=== PATIENT | male | born 1955 | race Caucasian/White ===

== ENCOUNTER 2018-08-30 07:48 | Day surgery (SDC) | payer OTHER ==
[~2018-08-30] VITALS: Ht 167.6 cm; Wt 79.0 kg
[~2018-08-30 07:48] MED LIST: ATOR10 PO; Azor 10-20 MG1 EACH PO; FISH OIL 1,0001 EAC1 PO
== END 2018-08-30 09:48 | disposition home or self-care (01) ==
LOC: ORSCSDS 07:48
PROVIDERS: Student in an Organized Health Care Education/Training Program
PROC: 0DBK8ZX Excision of Ascending Colon, Via Natural or Artificial Opening Endoscopic, Diagnostic (ICD-10-PCS; principal; 2018-08-30 09:00)
DX: Z12.11 Encounter for screening for malignant neoplasm of colon (principal); D12.2 Benign neoplasm of ascending colon; K62.89 Other specified diseases of anus and rectum; K64.4 Residual hemorrhoidal skin tags; K57.30 Diverticulosis of large intestine without perforation or abscess without bleeding; I10 Essential (primary) hypertension; Z86.010 Personal history of colon polyps; Z79.899 Other long term (current) drug therapy
CPT/HCPCS: 88305; J0330; J1980; J2405; J7120

== ENCOUNTER → 2022-10-13 | Outpatient (CLI) | payer OTHER | LOC: LAB SHORT 12:05 → LAB 12:05 | DX: L82.1 Other seborrheic keratosis (principal); L57.0 Actinic keratosis | CPT/HCPCS: 88305 ==

== ENCOUNTER → 2023-03-29 | Outpatient (CLI) | payer OTHER | LOC: LAB 09:19 → LAB SHORT 09:19 | DX: R68.82 Decreased libido (principal) | CPT/HCPCS: 84403 ==

== ENCOUNTER → 2023-12-04 | Outpatient (CLI) | payer OTHER | END | disposition home or self-care (01) | LOC: LAB SHORT 14:35 → LAB 14:35 | DX: C44.519 Basal cell carcinoma of skin of other part of trunk (principal) | CPT/HCPCS: 88305 ==